=== PATIENT | female | born 1985 | race Caucasian/White ===

== ENCOUNTER 2017-01-15 15:57 | Emergency (ER) | payer SELFPAY ==
--- NOTE | 2017-01-15 16:14 | CPEKG ---
Heart Rate: 74 RR Interval: 811 P-R Interval: 160 QRSD Interval: 94 QT Interval: 392 QTC Interval: 435 P [place]: 22 QRS [place]: 47 T Wave [place]: 28 EKG Severity - NORMAL ECG - EKG Impression: SINUS RHYTHM Electronically Signed By: Brennen Buck 15-Jan-2017 16:40:07
[2017-01-15 16:33] VITALS: RESP 18
[2017-01-15 16:42] LABS: % IMMATURE GRANULYOCYTES 0.2 % (0.0-1.1); ABSOLUTE IMMATURE GRANULOCYTES 0.01 10^3/uL (0.00-0.10); ADD DIFF? NO; ADD MORPH? NO; ADD SCAN? NO; ATYPICAL LYMPHOCYTE FLAG 10 (0-99); FRAGMENT RBC FLAG 0 (0-99); HEMOGLOBIN 15.2 g/dL (12.6-16.3); LEFT SHIFT FLG 0 (0-99); LIPEMIA HEMOLYSIS FLAG 90 (0-99); MEAN CELL HEMOGLOBIN 31.6 pg (27.9-34.1); MEAN CELL HEMOGLOBIN CONCENTR. 35.3 g/dL (32.4-36.7); MEAN CELL VOLUME 89.4 fL (81.5-99.8); MEAN PLATELET VOLUME 10.1 fL (8.7-11.7); PLATELET CLUMPS FLAG 0 (0-99); PLATELET COUNT 247 10^3/uL (150-400); RED BLOOD CELL COUNT 4.81 10^6/uL (4.18-5.33); RED CELL DISTRIBUTION WIDTH 12.4 % (11.5-15.2)
--- NOTE | 2017-01-15 16:46 | UCPHY ---
H & P Patient Type: New Chief Complaint Nursing Narrative: pt states bilateral chest pain since yesterday 1300 "I wasn't really doing anything when it started" pt states that she has tried otc antacids w/o relief Time Seen by Provider: 01/15/17 16:26 HPI/ROS: This patient presents with a chief complaint of chest pain described as a tightness which began yesterday. She localizes the pain to the mid sternum and localizes a fairly small area with some radiation to the parasternal area on the left. Initially she thought it was GERD and took antacids and H2 blockers but this did not have an affect. Pain seems to be cyst slightly worse when she takes breath but is unaffected by movement, position or eating. The only thing that seems to help is when she burps but this is short lived. She has no associated symptoms and denies cough, fever, diaphoresis, shortness of breath, nausea or vomiting. The pain does not radiate to her shoulders extremities neck or back. She denies being ill otherwise except for some nasal congestion and mild sore throat which she attributes to allergies. She recently began an exercise regime. REVIEW OF SYSTEMS: Constitutional: No fever, no malaise Eyes: No complaints ENT: Runny nose, mild sore throat, no ear pain Respiratory: No cough, no shortness of breath Cardiac: See above, no palpitations Gastrointestinal: Denies nausea, vomiting, abdominal pain or diarrhea Genitourinary: No complaints Musculoskeletal: No neck or back pain Skin: No rash Neurological: No headache Source: Patient, RN notes reviewed Exam Limitations: No limitations - Personal History LMP (Females 10-55): 1-7 Days Ago Current Tetanus/Diphtheria Vaccine: Yes Current Tetanus Diphtheria and Acellular Pertussis (TDAP): Yes - Medical/Surgical History Hx Asthma: No Hx Chronic Respiratory Disease: No Hx Diabetes: No Hx Cardiac Disease: No Hx Renal Disease: No Hx Cirrhosis: No Hx Alcoholism: No Hx HIV/AIDS: No Hx Splenectomy or Spleen Trauma: No Other PMH: pilonidal cyst PMDD - Family History Significant Family History: No pertinent family hx - Social History Smoking Status: Never smoked - Physical Exam Exam: GENERAL: Well-appearing, well-nourished and in no acute distress. HEAD: Atraumatic, normocephalic. EYES: Pupils equal round and reactive to light, extraocular movements intact, sclera anicteric, conjunctiva are normal. ENT: TMs normal, nares patent, oropharynx clear without exudates. Moist mucous membranes. NECK: Normal range of motion, supple without lymphadenopathy or JVD. LUNGS: Breath sounds clear to auscultation bilaterally and equal. No wheezes rales or rhonchi. HEART: Regular rate and rhythm without murmurs, rubs or gallops. No chest wall tenderness ABDOMEN: Soft, nontender, normoactive bowel sounds. No guarding, no rebound. No masses appreciated. EXTREMITIES: Normal range of motion, no pitting or edema. No clubbing or cyanosis. NEUROLOGICAL: Cranial nerves II through XII grossly intact. Normal speech, normal gait. PSYCH: Normal mood, normal affect. SKIN: Warm, dry, normal turgor, no visible rashes or lesions. Constitutional: Initial Vital Signs Temperature (C) 36.9 C 01/15/17 16:01 Heart Rate 76 01/15/17 16:01 Respiratory Rate 18 01/15/17 16:01 Blood Pressure 147/95 H 01/15/17 16:01 O2 Sat (%) 96 01/15/17 16:01 O2 Delivery Mode Nasal Cannula O2 (L/minute) 2 Allergies/Adverse Reactions: Sulfa (Sulfonamide Antibiotics) Allergy (Verified 01/15/17 16:43) Home Medications: Medication Instructions Recorded Bcp 01/15/17 Medical Decision Making - Diagnostics EKG Interpretation: An EKG is normal ED Course/Re-evaluation: The patient was monitored throughout her stay in the department and she remained stable and in good condition. Differential Diagnosis: I do not have an explanation for this patient's pain but do not find any evidence of cardiovascular disease including pericarditis, pulmonary embolus, aortic dissection, pneumonia or pneumothorax. I doubt seriously that this is GERD although it is a possibility. I do not believe the cause of her pain is serious and that she will do well. - Data Points Laboratory Results: Laboratory Results 01/15/17 16:35 01/15/17 16:35 01/15/17 01/15/17 01/15/17 16:35 16:35 16:35 WBC 6.23 10^3/uL 10^3/uL (3.80-9.50) RBC 4.81 10^6/uL 10^6/uL (4.18-5.33) Hgb 15.2 g/dL g/dL (12.6-16.3) Hct 43.0 % % (38.0-47.0) MCV 89.4 fL fL (81.5-99.8) MCH 31.6 pg pg (27.9-34.1) MCHC 35.3 g/dL g/dL (32.4-36.7) RDW 12.4 % % (11.5-15.2) Plt Count 247 10^3/uL 10^3/uL (150-400) MPV 10.1 fL fL (8.7-11.7) Neut % (Auto) 48.6 % % (39.3-74.2) Lymph % (Auto) 39.5 % % (15.0-45.0) [place] % (Auto) 7.1 % % (4.5-13.0) Eos % (Auto) 3.5 % % (0.6-7.6) Baso % (Auto) 1.1 % % (0.3-1.7) Nucleat RBC Rel Count 0.0 % % (0.0-0.2) Absolute Neuts (auto) 3.03 10^3/uL 10^3/uL (1.70-6.50) Absolute Lymphs (auto) 2.46 10^3/uL 10^3/uL (1.00-3.00) Absolute Monos (auto) 0.44 10^3/uL 10^3/uL (0.30-0.80) Absolute Eos (auto) 0.22 10^3/uL 10^3/uL (0.03-0.40) Absolute Basos (auto) 0.07 10^3/uL 10^3/uL (0.02-0.10) Absolute Nucleated RBC 0.00 10^3/uL 10^3/uL (0-0.01) Immature Gran % 0.2 % % (0.0-1.1) Immature Gran # 0.01 10^3/uL 10^3/uL (0.00-0.10) D-Dimer 0.29 ug/mLFEU ug/mLFEU (0.00-0.50) Sodium 143 mEq/L mEq/L (134-144) Potassium 3.8 mEq/L mEq/L (3.5-5.2) Chloride 101 mEq/L mEq/L (97-110) Carbon Dioxide 23 mEq/l mEq/l (22-31) Anion Gap 19 mEq/L H mEq/L (8-16) BUN 10 mg/dL mg/dL (7-23) Creatinine 0.6 mg/dL mg/dL (0.6-1.0) Estimated GFR > 60 Glucose 93 mg/dL mg/dL (70-100) Calcium 10.2 mg/dL mg/dL (8.5-10.4) Total Bilirubin 0.6 mg/dL mg/dL (0.1-1.4) AST 36 IU/L IU/L (14-46) ALT 52 IU/L IU/L (9-52) Alkaline Phosphatase 53 IU/L IU/L (38-126) Troponin I < 0.012 ng/mL ng/mL (0-0.034) Total Protein 8.0 g/dL g/dL (6.3-8.2) Albumin 4.4 g/dL g/dL (3.5-5.0) Departure - Departure Disposition: Home, Routine, Self-Care Clinical Impression: Chest pain Qualifiers: Chest pain type: unspecified Qualified Code(s): R07.9 - Chest pain, unspecified Condition: Good Instructions: Noncardiac Chest Pain (ED) Additional Instructions: If this pain persists more than 3 or 4 days you should be re-evaluated. Try using heat application several times daily. Adult Pain & Fever Control: We recommend Acetaminophen (Tylenol) and Ibuprofen (Motrin, Advil) for pain and fever control. When fever is high or pain severe, both drugs can be used at the same time, but at different intervals. Please note the time differences. Your dose is: Acetaminophen [650]mg every 4 to 6 hours ibuprofen [600]mg every [6] hours with food OR naproxen Sodium (Aleve) [440]mg every 12 hours. Note: do not take Acetaminophen with Hydrocodone (Vicodin, Lortab) or Oxycodone (Percocet). These medications also contain Acetaminophen. No more than 3000 mg of Acetaminophen should be taken in 24 hours (for an adult) . The maximal dose of ibuprofen that it is safe in a 24-hour period is 2400 mg. You may take 400 mg every 4 hours, 600 mg every 6 hours or 800 mg every 8 hours safely. Referrals: NONE *PRIMARY CARE P,. [Primary Care Provider] - As per Instructions - PQRS PQRS Measurement: Not applicable
[2017-01-15 16:49] LABS: ALANINE AMINOTRANSFERASE 52 IU/L (9-52); ALBUMIN 4.4 g/dL (3.5-5.0); ALKALINE PHOSPHATASE 53 IU/L (38-126); ANION GAP 19 mEq/L (8-16); ASPARTATE AMINOTRANSFERASE 36 IU/L (14-46); BILIRUBIN,TOTAL 0.6 mg/dL (0.1-1.4); CALCIUM 10.2 mg/dL (8.5-10.4); CARBON DIOXIDE 23 mEq/l (22-31); CHLORIDE 101 mEq/L (97-110); CREATININE 0.6 mg/dL (0.6-1.0); GLOMERULAR FILTRATION RATE > 60; GLUCOSE 93 mg/dL (70-100); POTASSIUM 3.8 mEq/L (3.5-5.2); SODIUM 143 mEq/L (134-144)
[2017-01-15 17:01] LABS: TROPONIN I < 0.012 ng/mL (0-0.034)
[2017-01-15 17:02] VITALS: O2SAT 97
[2017-01-15 17:22] VITALS: BP 120/78; PULSE 82; TEMP 98.1
== END 2017-01-15 17:19 | disposition home or self-care (01) ==
LOC: CED 15:57
DX: R07.9 Chest pain, unspecified (principal)
CPT/HCPCS: 80053-PO; 84484-PO; 85025-PO; 85378-PO; 93010-PO; 99205-PO; G0463-PO

== ENCOUNTER 2017-02-24 09:28 | Emergency (ER) | payer OTHER | END 2017-02-24 09:40 | disposition left against medical advice (07) | LOC: CED 09:28 | DX: Z53.21 Procedure and treatment not carried out due to patient leaving prior to being seen by health care provider (principal) ==